=== PATIENT | female | born 1985 | race Caucasian/White ===

== ENCOUNTER 2017-09-28 16:01 | Emergency (ER) | payer OTHER, SELFPAY ==
--- NOTE | 2017-09-28 17:15 | RAD REPORT ---
EXAM DESCRIPTION: RAD - Foot Left 3 View - 09/28/2017 5:09 pm CLINICAL HISTORY: Great toe;Smash injury;Pain COMPARISON: No comparisons FINDINGS: Mildly comminuted fractures seen involving the distal phalanx of the great toe. Mild adjac ent soft tissue swelling is seen.
--- NOTE | 2017-09-28 17:20 | ER ---
Nurse's Notes [facility] Name: Delphine Maloney Age: 32 yrs Sex: Female : 1985 Arrival Date: 09/28/2017 Time: 16:05 Bed 12 Private MD: Out, [facility] Diagnosis: Nondisplaced fracture of distal phalanx of left great toe Presentation: 09/28 16:23 Presenting complaint: Patient states: had a chair fall over on her foot today... c/o rk2 pain to 1st toe on left foot. Transition of care: patient was not received from another setting of care. Onset of symptoms was September 28, 2017. Risk Assessment: Do you want to hurt yourself or someone else? Patient reports no desire to harm self or others. Initial Sepsis Screen: Does the patient meet any 2 criteria? No. Patient's initial sepsis screen is negative. Does the patient have a suspected source of infection? No. Patient's initial sepsis screen is negative. Care prior to arrival: None. 16:23 Method Of Arrival: Ambulatory rk2 16:23 Acuity: VIRAJ 4 rk2 Triage Assessment: 16:26 General: Appears in no apparent distress. well groomed, well developed, well nourished, rk2 Behavior is calm, cooperative. Pain: Complains of pain in left foot. Neuro: Level of Consciousness is alert, obeys commands, Oriented to person, place, time, situation. Respiratory: Airway is patent Respiratory effort is even, unlabored, Respiratory pattern is regular, symmetrical. Derm: Skin is pink, warm \T\ dry. Injury Description: Bruise sustained to 1 st toe on left foot. 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 - Social history:: Smoking status: Patient/guardian denies using tobacco, never smoked. - Ebola Screening: : Patient negative for fever greater than or equal to 101.5 degrees Fahrenheit, and additional compatible Ebola Virus Disease symptoms. Screenin:27 Abuse screen: Denies threats or abuse. Nutritional screening: No deficits noted. rk2 Tuberculosis screening: No symptoms or risk factors identified. Fall Risk None identified. Assessment: 17:03 Reassessment: xray completed \T\ bedside. rk2 17:24 Reassessment: Patient appears in no apparent distress at this time. Patient and/or ss family updated on plan of care and expected duration. Pain level reassessed. pt is thankful for care received, smiling. Vital Signs: 16:25 BP 138 / 70; Pulse 90; Resp 16; Temp 96.9; Pulse Ox 98% ; rk2 ED Course: 16:05 Patient arrived in ED. sb2 16:06 Out, of Town is Private Physician. sb2 16:10 [facility]. pm1 16:10 Paco Rainey MD is Attending Physician. pm1 16:23 Millie Valencia RN is Primary Nurse. rk2 16:24 Triage completed. rk2 16:27 Patient has correct armband on for positive identification. Bed in low position. Call rk2 light in reach. 16:27 Arm band placed on. rk2 17:03 Foot Left 3 View XRAY Sent. rk2 17:05 X-ray completed. Portable x-ray completed in exam room. Patient tolerated procedure la2 well. 17:06 Foot Left 3 View XRAY In Process Unspecified. EDMS 17:24 No provider procedures requiring assistance completed. Patient did not have IV access ss during this emergency room visit. Administered Medications: No medications were administered Outcome: 17:20 Discharge ordered by MD. pm1 17:24 Discharged to home ambulatory. ss 17:24 Condition: good 17:24 Discharge instructions given to patient, Instructed on discharge instructions, follow up and referral plans. Demonstrated understanding of instructions, follow-up care. 17:26 Patient left the ED. ss Signatures: Dispatcher [employer] EDMS Pura Quiñonez RN RN Colin Thakur NP PLOW MECHANIC pm1 Amy Shaw la2 Millie Valencia RN RN rk2 Yajaira Fabian sb2
--- NOTE | 2017-09-28 17:20 | EDPHYS ---
Physician Documentation [facility] Name: Delphine Maloney Age: 32 yrs Sex: Female : 1985 Arrival Date: 09/28/2017 Time: 16:05 Bed 12 Private MD: Out, [facility] ED Physician Paco Rainey HPI: 09/28 17:14 This 32 yrs old Female presents to ER via Ambulatory with complaints of Left pm1 Great Toe Injury. 17:14 The patient presents with a crush injury, Bar stool. The complaints affect the left pm1 first toe. Context: The problem was sustained at home, resulted from a heavy object falling, furniture or furniture accessory, the patient can fully bear weight, the patient is able to ambulate. Onset: The symptoms/episode began/occurred today. Modifying factors: The symptoms are alleviated by ice packs, the symptoms are aggravated by weight bearing, movement. Associated signs and symptoms: Pertinent negatives: numbness, tingling. Severity of symptoms: in the emergency department the symptoms have improved, markedly. The patient has not experienced similar symptoms in the past. The patient has not recently seen a physician. Bar stool accidentally fell on the patient's left great toe. 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 - Social history:: Smoking status: Patient/guardian denies using tobacco, never smoked. - Ebola Screening: : Patient negative for fever greater than or equal to 101.5 degrees Fahrenheit, and additional compatible Ebola Virus Disease symptoms. ROS: 17:14 MS/extremity: Positive for pain, swelling, of the left first toe. pm1 17:14 Constitutional: Negative for fever, chills, and weight loss, Cardiovascular: Negative for chest pain, palpitations, and edema, Respiratory: Negative for shortness of breath, cough, wheezing, and pleuritic chest pain, Back: Negative for injury and pain, Skin: Negative for injury, rash, and discoloration, Neuro: Negative for headache, weakness, numbness, tingling, and seizure. Exam: 17:14 Constitutional: This is a well developed, well nourished patient who is awake, alert, pm1 and in no acute distress. Head/Face: Normocephalic, atraumatic. Chest/axilla: Normal chest wall appearance and motion. Nontender with no deformity. No lesions are appreciated. Cardiovascular: Regular rate and rhythm with a normal S1 and S2. No gallops, murmurs, or rubs. Normal PMI, no JVD. No pulse deficits. Respiratory: Lungs have equal breath sounds bilaterally, clear to auscultation and percussion. No rales, rhonchi or wheezes noted. No increased work of breathing, no retractions or nasal flaring. Back: No spinal tenderness. No costovertebral tenderness. Full range of motion. Skin: Warm, dry with normal turgor. Normal color with no rashes, no lesions, and no evidence of cellulitis. 17:14 Musculoskeletal/extremity: Extremities: grossly normal except: noted in the left first toe: swelling, tenderness, There is no evidence of decreased ROM. Vital Signs: 16:25 BP 138 / 70; Pulse 90; Resp 16; Temp 96.9; Pulse Ox 98% ; rk2 MDM: 16:11 Patient medically screened. pm1 17:19 Data reviewed: vital signs. Data interpreted: Pulse oximetry: on room air is 98 %. pm1 Interpretation: normal. Counseling: I had a detailed discussion with the patient and/or guardian regarding: the historical points, exam findings, and any diagnostic results supporting the discharge/admit diagnosis, radiology results, the need for outpatient follow up, to return to the emergency department if symptoms worsen or persist or if there are any questions or concerns that arise at home. 17:20 ED course: Patient offered pain medications in the ER. Patient refused. Patient offered pm1 prescription for Tylenol #3 and tramadol. Patient refused. Wants to take ibuprofen and Tylenol PRN at home. 09/28 16:17 Order name: Foot Left 3 View XRAY; Complete Time: 17:24 pm1 09/28 16:18 Order name: Post-op shoe; Complete Time: 17:06 pm1 Administered Medications: No medications were administered Disposition: 09/29 13:38 Co-signature as Attending Physician, Paco Rainey MD. Disposition: 09/28/17 17:20 Discharged to Home. Impression: Nondisplaced fracture of distal phalanx of left great toe. - Condition is Stable. - Discharge Instructions: Toe Fracture. - Medication Reconciliation Form, Thank You Letter form. - Follow up: Emergency Department; When: As needed; Reason: Worsening of condition. Follow up: Private Physician; When: 2 - 3 days; Reason: Recheck today's complaints, Continuance of care, Re-evaluation by your physician. - Problem is new. - Symptoms have improved. Signatures: Dispatcher [employer] EDMS Pura Quiñonez RN RN ss Colin Thakur, MEDIA THEORIST AND AUTHOR OF MEDIA THEORIST AND AUTHOR OF pm1 Paco Rainey MD MD Millie Valencia RN RN rk2 Corrections: (The following items were deleted from the chart) 09/28 17:26 17:20 09/28/2017 17:20 Discharged to Home. Impression: Nondisplaced fracture of distal ss phalanx of left great toe. Condition is Stable. Forms are Medication Reconciliation Form, Thank You Letter, Antibiotic Education, Prescription Opioid Use. Follow up: Emergency Department; When: As needed; Reason: Worsening of condition. Follow up: Private Physician; When: 2 - 3 days; Reason: Recheck today's complaints, Continuance of care, Re-evaluation by your physician. Problem is new. Symptoms have improved. pm1
[2017-09-28 17:56] VITALS: BP 138/70; TEMP 96.9; O2SAT 98
== END 2017-09-28 17:26 | disposition home or self-care (01) ==
LOC: ER 16:01
DX: S92.425A Nondisplaced fracture of distal phalanx of left great toe, initial encounter for closed fracture (principal); W22.8XXA Striking against or struck by other objects, initial encounter; Y93.89 Activity, other specified; Y92.009 Unspecified place in unspecified non-institutional (private) residence as the place of occurrence of the external cause
CPT/HCPCS: 99283

== ENCOUNTER 2018-03-23 11:43 | Emergency (ER) | payer BC, SELFPAY ==
--- NOTE | 2018-03-23 13:44 | RAD REPORT ---
EXAM DESCRIPTION: CT - Head Brain Wo Cont - 03/23/2018 1:35 pm CLINICAL HISTORY: Numbness, patient reports bilateral hand and feet numbness and tingling COMPARISON: None. TECHNIQUE: Axial 5 mm thick images of the head were obtained without IV contrast. All CT scans are performed using dose optimization technique as appropriate and may include automated exposure control or mA/KV adjustment according to patient size. FINDINGS: No intracranial hemorrhage, mass, edema or shift of mid-line structures. No acute infarcti on changes seen. No abnormal extra-axial fluid collections. Ventricles are normal. Mastoid air cells and visualized portions of the paranasal sinuses are clear. No acute bony findings. IMPRESSION: Negative non-contrast CT head examination.
[2018-03-23 13:58] LABS: Absolute Lymphocytes (CBC) 2.1 K/uL (0.7-4.9); Absolute Monocytes 0.5 K/uL (0.1-1.3); Basophils % 1.4 % (0-1.3); Eosinophils % 1.3 % (0-4.4); Hematocrit 37.7 % (36.0-45.0); Lymphocytes % 27.1 % (15.3-44.8); MCH 28.1 pg (27.0-35.0); MPV 10.5 fL (7.6-11.3); Monocytes % 5.9 % (3.3-12.3); RBC Red Blood Cell Count 4.54 M/uL (3.86-4.86)
[2018-03-23 14:10] LABS: Potassium 4.1 mmol/L (3.5-5.1); Thyroid Stimulating Hormone 1.19 uIU/mL (0.360-3.740)
[2018-03-23] MEDS ORDERED: NA CHLORIDE 0.9% 500 ML ONE (15:08)
[2018-03-23] MEDS ORDERED: POTASSIUM CL SA 10 MEQ TAB PO ONE (15:08)
--- NOTE | 2018-03-23 15:44 | EDPHYS ---
Physician Documentation [facility] Name: Delphine Maloney Age: 32 yrs Sex: Female : 1985 Arrival Date: 03/23/2018 Time: 11:47 Bed 24 Private MD: None, None ED Physician Woody Abdalla HPI: 03/23 13:05 This 32 yrs old Female presents to ER via Ambulatory with complaints of rn TINGLING HAND AND FEET. 13:05 The patient's problem is reported as paresthesias, all over. Onset: The rn symptoms/episode began/occurred last night. Duration: The episodes are intermittent. The symptoms are alleviated by nothing. The symptoms are aggravated by nothing. Severity of symptoms: At their worst the symptoms were mild in the emergency department the symptoms are unchanged. The patient has experienced similar episodes in the past. Reports has intermittent tingling of hands/feet about twice weekly, last night began with intermittent tingling/numbness of entire body, jumps around. Does not feels anxious, usually goes away but not since this morning, no head injury, no hx of early stroke in family, no known medical problems, no weakness.. 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 - Social history:: Smoking status: Patient/guardian denies using tobacco, Patient/guardian denies using alcohol. - Ebola Screening: : Patient negative for fever greater than or equal to 101.5 degrees Fahrenheit, and additional compatible Ebola Virus Disease symptoms Patient denies exposure to infectious person Patient denies travel to an Ebola-affected area in the 21 days before illness onset. - Family history:: not pertinent. - Hospitalizations: : No recent hospitalization is reported. ROS: 15:32 Constitutional: Negative for fever, chills, and weight loss, Eyes: Negative for injury, rn pain, redness, and discharge, Neck: Negative for injury, pain, and swelling, Cardiovascular: Negative for chest pain, palpitations, and edema, Respiratory: Negative for shortness of breath, cough, wheezing, and pleuritic chest pain, Abdomen/GI: Negative for abdominal pain, nausea, vomiting, diarrhea, and constipation, MS/Extremity: Negative for injury and deformity, Skin: Negative for injury, rash, and discoloration, Neuro: Negative for headache, weakness, and seizure. Exam: 15:32 Constitutional: This is a well developed, well nourished patient who is awake, alert, rn and in no acute distress. Head/Face: Normocephalic, atraumatic. Eyes: Pupils equal round and reactive to light, extra-ocular motions intact. ENT: MMM Cardiovascular: Regular rate, irregular, no murmur Respiratory: Lungs have equal breath sounds bilaterally, clear to auscultation Abdomen/GI: soft, non-tender MS/ Extremity: Pulses equal, no cyanosis. Neurovascular intact. Full, normal range of motion. Equal circumference. Neuro: Awake and alert, GCS 15, oriented to person, place, time, and situation. Cranial nerves II-XII grossly intact. Motor strength 5/5 in all extremities. Sensory grossly intact. Vital Signs: 12:06 BP 125 / 63; Pulse 65; Resp 18; Temp 97.8(TE); Pulse Ox 100% on R/A; Weight 104.33 kg; hj Height 5 ft. 3 in. (160.02 cm); Pain 2/10; 13:05 BP 104 / 50; Pulse 69; Resp 18; Pulse Ox 100% ; aj1 14:10 BP 115 / 66; Pulse 87; Resp 18; Pulse Ox 100% on R/A; aj1 15:13 BP 109 / 70; Pulse 102; Resp 18; Pulse Ox 100% on R/A; aj1 12:06 Body Mass Index 40.74 (104.33 kg, 160.02 cm) MDM: 12:52 Patient medically screened. rn 15:40 Differential diagnosis: metabolic disorder. Data reviewed: vital signs, nurses notes, internal control specialist test result(s), EKG, radiologic studies, plain films, and as a result, I will discharge patient. Counseling: I had a detailed discussion with the patient and/or guardian regarding: the historical points, exam findings, and any diagnostic results supporting the discharge/admit diagnosis, lab results, radiology results, the need for outpatient follow up, to return to the emergency department if symptoms worsen or persist or if there are any questions or concerns that arise at home. Response to treatment: the patient's symptoms have mildly improved after treatment, and as a result, I will discharge patient. Special discussion: I discussed with the patient/guardian in detail that at this point there is no indication for admission to the hospital. It is understood, however, that if the symptoms persist or worsen the patient needs to return immediately for re-evaluation. ED course: Pt with intermittent tingling/numbness, no weakness, no anatomical distribution, normal CT head, no acute findings in bloodwork, recommend cardiology f/u for PVCs, although likely unrelated to intermittent and migratory paresthesias, as well as neuro f/u. . 03/23 13:01 Order name: CBC with Diff; Complete Time: 14:33 rn 03/23 13:01 Order name: Basic Metabolic Panel; Complete Time: 14:33 rn 03/23 13:01 Order name: TSH; Complete Time: 14:33 rn 03/23 13:01 Order name: T4 Free; Complete Time: 14:33 rn 03/23 13:01 Order name: CT Head Brain wo Cont; Complete Time: 14:33 rn 03/23 13:01 Order name: IV Start; Complete Time: 13:34 rn Administered Medications: 15:05 Drug: NS 0.9% 500 ml Route: IV; Rate: bolus; Site: left antecubital; [facility] 16:55 Follow up: IV Status: Completed infusion; IV Intake: 500ml [facility] 15:05 Drug: Potassium Chloride 40 mEq Route: PO; [facility] 16:55 Follow up: Response: No adverse reaction [facility] Disposition: 03/23/18 15:43 Discharged to Home. Impression: Paresthesia of skin, Ventricular premature depolarization. - Condition is Stable. - Discharge Instructions: Paresthesia, Premature Ventricular Contraction. - Medication Reconciliation Form, Thank You Letter, Antibiotic Education, Prescription Opioid Use form. - Follow up: Ras Nuñez MD; When: As needed; Reason: Recheck today's complaints, Re-evaluation by your physician. Follow up: Vaibhav Rust MD; When: As needed; Reason: Recheck today's complaints, Re-evaluation by your physician. - Problem is new. - Symptoms have improved. Signatures: Dispatcher [employer] EDMS Mireille Norwood RN RN aj1 Woody Abdalla MD MD rn Joaquin, Henry, RN RN hj Corrections: (The following items were deleted from the chart) 13:13 13:05 Reports has intermittent tingling of hands/feet about twice weekly, last night rn began with intermittent tingling/numbness of entire body, jumps around.. rn 15:45 15:43 03/23/2018 15:43 Discharged to Home. Impression: Paresthesia of skin; Ventricular rn premature depolarization. Condition is Stable. Forms are Medication Reconciliation Form, Thank You Letter, Antibiotic Education, Prescription Opioid Use. Follow up: Ras Nuñez; When: As needed; Reason: Recheck today's complaints, Re-evaluation by your physician. Problem is new. Symptoms have improved. rn 16:55 15:45 03/23/2018 15:43 Discharged to Home. Impression: Paresthesia of skin; Ventricular aj1 premature depolarization. Condition is Stable. Discharge Instructions: Paresthesia, Premature Ventricular Contraction. Forms are Medication Reconciliation Form, Thank You Letter, Antibiotic Education, Prescription Opioid Use. Follow up: Ras Nuñez; When: As needed; Reason: Recheck today's complaints, Re-evaluation by your physician. Follow up: Vaibhav Rust; When: As needed; Reason: Recheck today's complaints, Re-evaluation by your physician. Problem is new. Symptoms have improved. rn
--- NOTE | 2018-03-23 15:44 | ER ---
Nurse's Notes [facility] Name: Delphine Maloney Age: 32 yrs Sex: Female : 1985 Arrival Date: 03/23/2018 Time: 11:47 Bed 24 Private MD: None, None Diagnosis: Paresthesia of skin;Ventricular premature depolarization Presentation: 03/23 12:02 Presenting complaint: Patient states: since 7 pm last night, i started feeling my feet hj is tingling and elian swollen and so with my hands; reports pain on legs and R upper chest; denies N/V; denies fever and chills;. Transition of care: patient was not received from another setting of care. Onset of symptoms was March 23, 2018. Risk Assessment: Do you want to hurt yourself or someone else? Patient reports no desire to harm self or others. Initial Sepsis Screen: Does the patient meet any 2 criteria? No. Patient's initial sepsis screen is negative. Does the patient have a suspected source of infection? No. Patient's initial sepsis screen is negative. Care prior to arrival: None. 12:02 Method Of Arrival: Ambulatory 12:02 Acuity: VIRAJ 3 hj Triage Assessment: 12:05 General: Appears in no apparent distress. uncomfortable, Behavior is calm, cooperative, hj appropriate for age. Pain: Complains of pain in right arm, left arm, right leg and left leg. 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 - Social history:: Smoking status: Patient/guardian denies using tobacco, Patient/guardian denies using alcohol. - Ebola Screening: : Patient negative for fever greater than or equal to 101.5 degrees Fahrenheit, and additional compatible Ebola Virus Disease symptoms Patient denies exposure to infectious person Patient denies travel to an Ebola-affected area in the 21 days before illness onset. - Family history:: not pertinent. - Hospitalizations: : No recent hospitalization is reported. Screenin:06 Abuse screen: Denies threats or abuse. Denies injuries from another. Nutritional hj screening: No deficits noted. Tuberculosis screening: No symptoms or risk factors identified. Fall Risk None identified. Assessment: 13:02 General: Appears in no apparent distress. comfortable, Behavior is calm, cooperative, aj1 appropriate for age. Pain: Denies pain. Neuro: Level of Consciousness is awake, alert, obeys commands, Oriented to person, place, time, situation, Moves all extremities. Full function Gait is steady, Speech is normal, Facial symmetry appears normal, Reports paresthesias to entire body, that come and go. Cardiovascular: Heart tones S1 S2 present Patient's skin is warm and dry. Respiratory: Airway is patent Respiratory effort is even, unlabored, Respiratory pattern is regular, symmetrical. GI: No signs and/or symptoms were reported involving the gastrointestinal system. : No signs and/or symptoms were reported regarding the genitourinary system. EENT: No signs and/or symptoms were reported regarding the EENT system. Derm: No signs and/or symptoms reported regarding the dermatologic system. Skin is pink, warm \T\ dry. normal. Musculoskeletal: No signs and/or symptoms reported regarding the musculoskeletal system. Circulation, motion, and sensation intact. 14:05 Reassessment: Patient appears in no apparent distress at this time. No changes from aj1 previously documented assessment. Patient and/or family updated on plan of care and expected duration. Pain level reassessed. Patient is alert, oriented x 3, equal unlabored respirations, skin warm/dry/pink. 15:12 Reassessment: Patient appears in no apparent distress at this time. No changes from aj1 previously documented assessment. Patient and/or family updated on plan of care and expected duration. Pain level reassessed. Patient is alert, oriented x 3, equal unlabored respirations, skin warm/dry/pink. 16:05 Reassessment: discharge pending finishing infusion of IV fluids. aj1 16:30 Reassessment: Patient appears in no apparent distress at this time. No changes from aj1 previously documented assessment. Patient and/or family updated on plan of care and expected duration. Pain level reassessed. Patient is alert, oriented x 3, equal unlabored respirations, skin warm/dry/pink. Vital Signs: 12:06 BP 125 / 63; Pulse 65; Resp 18; Temp 97.8(TE); Pulse Ox 100% on R/A; Weight 104.33 kg; hj Height 5 ft. 3 in. (160.02 cm); Pain 2/10; 13:05 BP 104 / 50; Pulse 69; Resp 18; Pulse Ox 100% ; aj1 14:10 BP 115 / 66; Pulse 87; Resp 18; Pulse Ox 100% on R/A; aj1 15:13 BP 109 / 70; Pulse 102; Resp 18; Pulse Ox 100% on R/A; aj1 12:06 Body Mass Index 40.74 (104.33 kg, 160.02 cm) hj ED Course: 11:47 Patient arrived in ED. sb2 11:47 None, None is Private Physician. sb2 12:05 Triage completed. hj 12:06 Arm band placed on left wrist. hj 12:07 Patient has correct armband on for positive identification. Placed in gown. Bed in low hj position. Call light in reach. Side rails up X 1. 12:52 Woody Abdalla MD is Attending Physician. rn 13:02 Mireille Norwood RN is Primary Nurse. aj1 13:02 No provider procedures requiring assistance completed. aj1 13:25 Missed attempt(s): 22 gauge 24 gauge in left in right forearm. Bleeding controlled, jp3 band aid applied, catheter tip intact. 13:30 Inserted saline lock: 22 gauge in left antecubital area, using aseptic technique. Blood jp3 collected. by SJ from CT. 13:41 CT Head Brain wo Cont In Process Unspecified. EDMS 15:42 Ras Nuñez MD is Referral Physician. rn 15:45 Vaibhav Rust MD is Referral Physician. rn 16:54 IV discontinued, intact, bleeding controlled, No redness/swelling at site. Pressure aj1 dressing applied. Administered Medications: 15:05 Drug: NS 0.9% 500 ml Route: IV; Rate: bolus; Site: left antecubital; aj1 16:55 Follow up: IV Status: Completed infusion; IV Intake: 500ml aj1 15:05 Drug: Potassium Chloride 40 mEq Route: PO; aj1 16:55 Follow up: Response: No adverse reaction aj1 Intake: 16:55 IV: 500ml; Total: 500ml. aj1 Outcome: 15:43 Discharge ordered by . rn 16:54 Discharged to home ambulatory. aj1 16:54 Condition: good 16:54 Discharge instructions given to patient, Instructed on discharge instructions, follow up and referral plans. Demonstrated understanding of instructions, follow-up care. 16:55 Patient left the ED. aj1 Signatures: Dispatcher [employer] Mireille Farley RN RN aj1 Woody Abdalla MD MD rn Joaquin, Henry, RN RN hj Billeau, Sheri sb2 Jesus Alberto Mcgregor jp3 Corrections: (The following items were deleted from the chart) 12:09 12:06 Pulse 65bpm; Resp 18bpm; Pulse Ox 100% RA; Temp 97.8F Temporal; 104.33 kg; Height hj 5 ft. 3 in.; BMI: 40.7; Pain 2/10; hj 16:54 16:52 Reassessment: discharge pending finishing infusion of IV fluids aj1 aj1
[2018-03-23 17:08] VITALS: TEMP 97.8; O2SAT 100
[2018-03-23 17:11] VITALS: BP 109/70
== END 2018-03-23 16:55 | disposition home or self-care (01) ==
LOC: ER 11:43
DX: I49.3 Ventricular premature depolarization (principal)
CPT/HCPCS: 36415; 70450; 80048; 84439; 84443; 85025; 96360; 96361; 99284

== ENCOUNTER 2020-09-25 20:36 | Emergency (ER) | payer BC ==
[2020-09-25] MEDS ORDERED: ONDANSETRON 4 MG (ODT) TAB ONE (22:22)
[2020-09-25] MEDS ORDERED: IBUPROFEN 400 MG TAB ONE (23:06)
--- NOTE | 2020-09-25 23:50 | ER ---
Nurse's Notes [facility] Name: Delphine Malnoey Age: 35 yrs Sex: Female : 1985 Arrival Date: 09/25/2020 Time: 20:39 Bed 2 Private MD: Diagnosis: Coronavirus infection, unspecified;Nausea and vomiting Presentation: 09/25 20:44 Chief complaint: Patient states: Cough, congestion, fever, chills and body aches began vg1 on 09/22/20. Coronavirus screen: Client denies travel out of the [place] in the last 14 days. Client presents with at least one sign or symptom that may indicate coronavirus-19. Standard/surgical mask placed on the client. Ebola Screen: Patient negative for fever greater than or equal to 101.5 degrees Fahrenheit, and additional compatible Ebola Virus Disease symptoms. Initial Sepsis Screen: Does the patient meet any 2 criteria? No. Patient's initial sepsis screen is negative. Does the patient have a suspected source of infection? No. Patient's initial sepsis screen is negative. Risk Assessment: Do you want to hurt yourself or someone else? Patient reports no desire to harm self or others. Onset of symptoms was September 22, 2020. 20:44 Method Of Arrival: Ambulatory vg1 20:44 Acuity: VIRAJ 3 vg1 Triage Assessment: 20:47 General: Appears in no apparent distress. uncomfortable, Behavior is calm, cooperative. vg1 Pain: Complains of pain in CHUY hand and CHUY feet. GI: Reports nausea, vomiting. 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 - Social history:: Smoking status: Patient denies any tobacco usage or history of. Screenin:52 Abuse screen: Denies threats or abuse. Nutritional screening: No deficits noted. jb4 Tuberculosis screening: No symptoms or risk factors identified. Fall Risk None identified. Assessment: 21:52 General: Appears in no apparent distress. uncomfortable, Behavior is calm, cooperative, jb4 appropriate for age. Pain: Complains of pain in right hand, left hand, right foot and left foot Pain does not radiate. Pain currently is 7 out of 10 on a pain scale. Quality of pain is described as aching. Neuro: Level of Consciousness is awake, alert, obeys commands, Oriented to person, place, time, situation. Cardiovascular: Patient's skin is warm and dry. Respiratory: Reports cough that is non-productive, Airway is patent Respiratory effort is even, unlabored, Respiratory pattern is regular, symmetrical. GI: Abdomen is non-distended, obese, Reports nausea. : No signs and/or symptoms were reported regarding the genitourinary system. EENT: No signs and/or symptoms were reported regarding the EENT system. Derm: Skin is intact, Skin is pink, warm \T\ dry. Musculoskeletal: Circulation, motion, and sensation intact. Range of motion: intact in all extremities. Vital Signs: 20:44 BP 122 / 81; Pulse 128; Resp 20; Temp 100.5(O); Pulse Ox 98% ; Weight 116.12 kg; Height vg1 5 ft. 3 in. (160.02 cm); Pain 7/10; 23:30 BP 125 / 68; Pulse 93; Resp 18; Temp 100.0(O); Pulse Ox 95% on R/A; jb4 20:44 Body Mass Index 45.35 (116.12 kg, 160.02 cm) vg1 ED Course: 20:39 Patient arrived in ED. cf2 20:46 Triage completed. vg1 20:47 Arm band placed on. vg1 21:41 Esequiel Jacome, ALMA ROSA is Primary Nurse. jb4 21:41 Herb Chiang PA is PHCP. cp 21:41 Jean-Pierre Floyd MD is Attending Physician. cp 21:52 Patient has correct armband on for positive identification. Placed in gown. Bed in low jb4 position. Call light in reach. Side rails up X 1. Pulse ox on. NIBP on. 22:41 XRAY Chest Pa And Lat (2 Views) In Process Unspecified. EDMS 09/26 00:06 No provider procedures requiring assistance completed. Patient did not have IV access jm8 during this emergency room visit. Administered Medications: 09/25 22:07 Drug: Zofran (Ondansetron) 4 mg Route: PO; jb4 09/26 00:08 Follow up: Response: No adverse reaction jm8 09/25 22:48 Drug: Ibuprofen 800 mg Route: PO; jm8 09/26 00:08 Follow up: Response: No adverse reaction jm8 Outcome: 09/25 23:48 Discharge ordered by MD. muse 09/26 00:06 Discharged to home ambulatory. jm8 Condition: good Discharge instructions given to patient, Instructed on discharge instructions, follow up and referral plans. medication usage, Demonstrated understanding of instructions, follow-up care, medications, Prescriptions given X 5 00:07 Patient left the ED. jm8 Signatures: Dispatcher [employer] EDMS Herb Chiang PA PA cp Bryson, James, RN RN jb4 Alexus Coates cf2 Deborah Fay, RN RN vg1 Bam Reddy, RN RN jm8
--- NOTE | 2020-09-25 23:50 | EDPHYS ---
Physician Documentation [facility] Name: Delphine Maloney Age: 35 yrs Sex: Female : 1985 Arrival Date: 09/25/2020 Time: 20:39 Bed 2 Private MD: ED Physician Jean-Pierre Floyd HPI: 09/25 22:00 This 35 yrs old Female presents to ER via Ambulatory with complaints of cp Cough, Nausea/Vomiting, Congestion, CHILLS, BODY PAIN. 22:00 The patient or guardian reports cough, that is intermittent. cp 22:00 Onset: The symptoms/episode began/occurred 3 day(s) ago. cp 22:00 Associated signs and symptoms: Pertinent positives: fever, nausea, vomiting, Pertinent cp negatives: chest pain, diarrhea. 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 - Social history:: Smoking status: Patient denies any tobacco usage or history of. ROS: 22:05 Constitutional: Positive for body aches, chills, fever. cp 22:05 Eyes: Negative for injury, pain, redness, and discharge. cp 22:05 Cardiovascular: Negative for chest pain, edema, palpitations. cp 22:05 Respiratory: Positive for cough, "sounds productive", shortness of breath, Negative for wheezing. 22:05 Abdomen/GI: Positive for nausea and vomiting, Negative for abdominal pain, diarrhea, constipation, active vomiting. 22:05 : Negative for urinary symptoms. cp 22:05 Neuro: Negative for altered mental status, headache, syncope, weakness. 22:05 All other systems are negative. Exam: 22:10 Constitutional: The patient appears in no acute distress, alert, awake, cp non-diaphoretic, non-toxic, well developed, well nourished, obese. 22:10 Head/Face: Normocephalic, atraumatic. cp 22:10 Eyes: Periorbital structures: appear normal, Conjunctiva: normal, no exudate, no injection, Sclera: no appreciated abnormality, Lids and lashes: appear normal, bilaterally. 22:10 ENT: External ear(s): are unremarkable, Nose: is normal, Mouth: Lips: moist, Oral mucosa: moist, Posterior pharynx: Airway: no evidence of obstruction, patent. 22:10 Neck: ROM/movement: is normal, is supple, no meningismus, no nuchal rigidity. 22:10 Chest/axilla: Inspection: normal, Palpation: is normal, no crepitus, no tenderness. 22:10 Cardiovascular: Rate: tachycardic, Rhythm: regular. 22:10 Respiratory: the patient does not display signs of respiratory distress, Respirations: normal, no use of accessory muscles, no retractions, labored breathing, is not present, Breath sounds: bronchial sounds, that are mild, are heard diffusely, decreased breath sounds, are not appreciated, + upper airway congestion. wheezing: is not appreciated. 22:10 Abdomen/GI: Inspection: abdomen appears normal, Palpation: abdomen is soft and non-tender, in all quadrants. 22:10 Skin: cellulitis, is not appreciated, no rash present. 22:10 Neuro: Orientation: to person, place \\T\\ time. Mentation: is normal. Vital Signs: 20:44 BP 122 / 81; Pulse 128; Resp 20; Temp 100.5(O); Pulse Ox 98% ; Weight 116.12 kg; Height vg1 5 ft. 3 in. (160.02 cm); Pain 7/10; 23:30 BP 125 / 68; Pulse 93; Resp 18; Temp 100.0(O); Pulse Ox 95% on R/A; jb4 20:44 Body Mass Index 45.35 (116.12 kg, 160.02 cm) vg1 MDM: 21:46 Patient medically screened. cp 22:00 Differential Diagnosis: Bronchitis Influenza Viral Syndrome Pneumonia. cp 23:45 Data reviewed: vital signs, nurses notes, lab test result(s), radiologic studies, plain cp films. 23:45 Test interpretation: by ED physician or midlevel provider: chest xray negative for cp focal pneumonia. Counseling: I had a detailed discussion with the patient and/or guardian regarding: the historical points, exam findings, and any diagnostic results supporting the discharge/admit diagnosis, lab results, radiology results, to return to the emergency department if symptoms worsen or persist or if there are any questions or concerns that arise at home. 09/25 21:56 Order name: Influenza Screen (a \\T\\ B); Complete Time: 23:32 09/25 23:32 Interpretation: Reviewed. 09/25 21:56 Order name: Strep; Complete Time: 23:32 09/25 21:56 Order name: Urine Microscopic Only 09/25 22:33 Order name: Throat Culture [facility] 09/25 23:41 Order name: SARS-COV-2 RT PCR [facility] 09/25 21:56 Order name: XRAY Chest Pa And Lat (2 Views) 09/25 23:17 Order name: Vital Signs: please update to include temp; Complete Time: 23:35 cp 09/25 23:42 Order name: PO challenge; Complete Time: 23:51 cp Administered Medications: 22:07 Drug: Zofran (Ondansetron) 4 mg Route: PO; jb4 09/26 00:08 Follow up: Response: No adverse reaction [facility] 09/25 22:48 Drug: Ibuprofen 800 mg Route: PO; jm8 09/26 00:08 Follow up: Response: No adverse reaction 8 Disposition: 09/25/20 23:48 Discharged to Home. Impression: Coronavirus infection, unspecified, Nausea and vomiting. - Condition is Stable. - Discharge Instructions: Nausea and Vomiting, Adult, COVID-19. - Prescriptions for ivermectin 3 mg Oral tablet - take 6 tablet by ORAL route every other day for 2 days x1 dose; 12 tablet. Zofran 4 mg Oral Tablet - take 1 tablet by ORAL route every 12 hours As needed; 20 tablet. Zithromax Z- Ramon 250 mg Oral Tablet - take 1 tablet by ORAL route as directed for 5 days Day 1 - take two (2) tablets one time. Day 2, 3, 4 , 5 take one (1) tablet once daily.; 6 tablet. Prednisone 20 mg Oral Tablet - take 2 tablets by ORAL route once daily for 5 days then take 1 tablet daily for 5 days; 15 tablet. Albuterol Sulfate 90 mcg/actuation - inhale 1-2 puff by INHALATION route every 4-6 hours; 1 Inhaler. - Medication Reconciliation Form, Thank You Letter, Antibiotic Education, Prescription Opioid Use form. - Follow up: Private Physician; When: 2 - 3 days; Reason: Worsening of condition. - Problem is new. - Symptoms have improved. Signatures: Dispatcher [employer] EDMI Herb Chiang PA PA cp Esequiel Jacome, RN RN jb4 Deborah Fay RN RN vg1 Bam Reddy, RN RN jm8 Corrections: (The following items were deleted from the chart) 09/25 22:57 21:56 CORONAVIRUS+ ordered. [facility] 09/26 00:07 09/25 23:48 09/25/2020 23:48 Discharged to Home. Impression: Coronavirus infection, jm8 unspecified; Nausea and vomiting. Condition is Stable. Forms are Medication Reconciliation Form, Thank You Letter, Antibiotic Education, Prescription Opioid Use. Follow up: Private Physician; When: 2 - 3 days; Reason: Worsening of condition. Problem is new. Symptoms have improved. cp
[2020-09-26 00:08] LABS: Urine Blood Negative (Negative); Urine Glucose Negative (Negative); Urine Protein Trace (Negative); Urine Specific Gravity >=1.030 (1.005-1.030); Urine pH 5.5 (5.0-7.0)
[2020-09-26 00:33] LABS: Urine Bacteria <20 /HPF (<20); Urine Mucus 2+ /HPF (NONE SEEN); Urine RBC <5 /HPF (NONE SEEN)
[2020-09-26 00:34] VITALS: BP 125/68; TEMP 100; O2SAT 95
--- NOTE | 2020-09-26 06:59 | RAD REPORT ---
EXAM DESCRIPTION: RAD - Chest Pa And Lat (2 Views) - 09/25/2020 10:42 pm CLINICAL HISTORY: COUGH, fever, chills COMPARISON: None TECHNIQUE: Frontal and lateral views of the chest were obtained. FINDINGS: The lungs are underinflated. Hazy lung parenchymal opacification seen lateral mid left blanca g field. Early infiltrate is possible given the clinical history. This can be monitored on subsequent imaging. Shallow inspiration atelectasis can create a similar pattern. Heart size is normal and central vasculature is within normal limits. No pleural effusion or pneu mothorax seen. No acute bony finding noted. No aortic abnormality. IMPRESSION: Limited low lung volume examination questionable for early lateral mid left lung field p neumonia.
== END 2020-09-26 00:07 | disposition home or self-care (01) ==
LOC: ER 20:36
DX: U07.1 COVID-19 (principal); R11.2 Nausea with vomiting, unspecified
CPT/HCPCS: 87070; 87081; 87804 ×2; 71046; 99284; U0003; 81003; 81015